=== PATIENT | male | born 1950 | race African-American/Black ===

== ENCOUNTER 2020-11-20 08:00 | Inpatient (IN) ==
[2020-11-20] MEDS ORDERED: DEXTROSE 50% 25 GM/50 ML VIAL IV PRN (08:33)
[2020-11-20] MEDS ORDERED: GLUCAGON 1 MG VIAL IM PRN (08:33)
[2020-11-20] MEDS ORDERED: CHLORHEXIDINE 4% SOLN 118 ML BOTTLE TOP SCH (09:00)
[2020-11-20 10:10] LABS: Basophils % 0.3 % (0.0-0.8); Eosinophils # 0.2 10*3/uL (0.0-0.87); Eosinophils % 3.8 % (0.00-10.9); Hematocrit 43.6 VOL% (42.0-52.0); Hemoglobin 14.4 GM/DL (14.0-18.0); Immature Granulocytes % 0.2 %; Immature Granulocytes Absolute 0.01 #; Lymphocytes # 1.5 10*3/uL (1.4-4.0); Lymphocytes % 25.1 % (21.2-54.2); Mean Corpuscular Volume 84.7 FL (87-102); Mean Platelet Volume 10.1 FL (9.6-12.0); Neutrophils % 55.6 % (38.7-73.9); Platelet Count 256 T/CUMM (130-400); Red Blood Count 5.15 MC/CUMM (3.8-5.5); Red Cell Distribution Width 16.6 % (9.3-17.3); White Blood Count 6.1 T/CUMM (4-12)
[2020-11-20 10:33] LABS: Alanine Aminotransferase 30 U/L (16-61); Albumin 3.7 G/DL (3.4-5.0); Alkaline Phosphatase 105 U/L (45-117); Aspartate Amino Transferase 42 U/L (0-37); Blood Urea Nitrogen 20 MG/DL (7-18); Calcium 9.6 MG/DL (8.5-10.1); Carbon Dioxide 31 MMOL/L (21-32); Estimated Glom Filtration Rate 56 ML/MIN; Glucose 98 MG/DL (74-106); Osmolality,Calculated 283.3 MOS/KG (273-304); Potassium 4.3 MMOL/L (3.5-5.1); Sodium 141 MMOL/L (136-145)
[2020-11-20] MEDS: HEPARIN DRIP 25,000 UNITS/500 ML PREMIX IV SCH (12:56)
[2020-11-20] MEDS: CHLORHEXIDINE 0.12% ORAL RINSE 60 ML BOTTLE SWISH/SPIT SCH (12:57)
[2020-11-21 05:57] LABS: Basophils % 0.6 % (0.0-0.8); Eosinophils # 0.3 10*3/uL (0.0-0.87); Eosinophils % 5.6 % (0.00-10.9); Hematocrit 41.3 VOL% (42.0-52.0); Hemoglobin 13.6 GM/DL (14.0-18.0); Immature Granulocytes % 0.4 %; Immature Granulocytes Absolute 0.02 #; Lymphocytes # 1.5 10*3/uL (1.4-4.0); Lymphocytes % 27.4 % (21.2-54.2); Mean Corpuscular HGB Conc 32.9 GM/DL (32-36); Mean Corpuscular Volume 84.5 FL (87-102); Mean Platelet Volume 10.4 FL (9.6-12.0); Platelet Count 245 T/CUMM (130-400); Red Blood Count 4.89 MC/CUMM (3.8-5.5); Red Cell Distribution Width 16.7 % (9.3-17.3); White Blood Count 5.3 T/CUMM (4-12)
[2020-11-21] MEDS: CHLORHEXIDINE 0.12% ORAL RINSE 60 ML BOTTLE SWISH/SPIT SCH ×3 (10:00→23:18)
[2020-11-21] MEDS: ASPIRIN EC 81 MG TABLET PO SCH (10:00)
[2020-11-21] MEDS: HEPARIN DRIP 25,000 UNITS/500 ML PREMIX IV SCH (12:30)
[2020-11-21] MEDS: ATORVASTATIN 20 MG TABLET PO SCH (23:18)
[2020-11-22 04:44] LABS: Basophils % 0.6 % (0.0-0.8); Eosinophils # 0.4 10*3/uL (0.0-0.87); Eosinophils % 5.8 % (0.00-10.9); Hemoglobin 13.1 GM/DL (14.0-18.0); Immature Granulocytes % 0.3 %; Immature Granulocytes Absolute 0.02 #; Lymphocytes # 1.7 10*3/uL (1.4-4.0); Lymphocytes % 28.1 % (21.2-54.2); Mean Corpuscular HGB Conc 33.6 GM/DL (32-36); Mean Corpuscular Volume 83.7 FL (87-102); Mean Platelet Volume 10.4 FL (9.6-12.0); Monocytes % 15.2 % (1.7-12.7); Platelet Count 248 T/CUMM (130-400); Red Blood Count 4.66 MC/CUMM (3.8-5.5); Red Cell Distribution Width 16.7 % (9.3-17.3); White Blood Count 6.2 T/CUMM (4-12)
[2020-11-22 05:14] LABS: Albumin 3.3 G/DL (3.4-5.0); Bilirubin,Total 0.9 MG/DL (0.20-1.00); Calcium 9.3 MG/DL (8.5-10.1); Osmolality,Calculated 286.1 MOS/KG (273-304); Potassium 4.2 MMOL/L (3.5-5.1); Total Protein 7.2 G/DL (6.4-8.2)
[2020-11-22] MEDS: amLODIPine 10 MG TABLET PO SCH (09:14)
[2020-11-22] MEDS: COLCHICINE 0.6 MG CAPSULE PO SCH (09:14)
[2020-11-22] MEDS: CHLORHEXIDINE 0.12% ORAL RINSE 60 ML BOTTLE SWISH/SPIT SCH ×2 (09:14→20:19)
[2020-11-22] MEDS: FUROSEMIDE 40 MG TABLET PO SCH (09:14)
[2020-11-22] MEDS: FOLIC ACID 1 MG TABLET PO SCH (09:14)
[2020-11-22] MEDS: allopurinoL 100 MG TABLET PO SCH (09:14)
[2020-11-22] MEDS: ASPIRIN EC 81 MG TABLET PO SCH (09:14)
[2020-11-22] MEDS: CHLORHEXIDINE 4% SOLN 118 ML BOTTLE TOP SCH ×3 (10:00→20:19)
[2020-11-22] MEDS: SODIUM CHLORIDE 0.9% 1,000 ML IV SCH (16:40)
[2020-11-22] MEDS: ATORVASTATIN 20 MG TABLET PO SCH (20:18)
[2020-11-23] MEDS: HEPARIN DRIP 25,000 UNITS/500 ML PREMIX IV SCH (00:41)
[2020-11-23] MEDS ORDERED: PAPAVERINE 60 MG/2 ML VIAL ONE (04:18)
[2020-11-23] MEDS ORDERED: VANCOMYCIN 500 MG VIAL ONE (04:19)
[2020-11-23] MEDS ORDERED: VANCOMYCIN 1,000 MG VIAL ONE (04:19)
[2020-11-23] MEDS ORDERED: CEFUROXIME INJ 1,500 MG in SODIUM CHLORIDE 0.9% 100 ML IV ONE (05:00)
[2020-11-23] MEDS ORDERED: DIAZEPAM 5 MG TABLET PO ONE (05:00)
[2020-11-23] MEDS ORDERED: FAMOTIDINE 20 MG TABLET PO ONE (05:00)
[2020-11-23] MEDS ORDERED: GABAPENTIN 400 MG CAPSULE PO ONE (05:00)
[2020-11-23] MEDS ORDERED: VECURONIUM 10 MG VIAL IV ONE ×3 (06:08→10:25)
[2020-11-23] MEDS ORDERED: AMINOCAPROIC ACID 5,000 MG/20 ML VIAL ONE ×4 (06:08)
[2020-11-23] MEDS ORDERED: LIDOCAINE 2% 5 ML VIAL ONE ×3 (06:08→12:07)
[2020-11-23] MEDS ORDERED: MINERAL OIL/PETROLATUM OPH OINT 3.5 GM TUBE ONE ×2 (06:08→12:06)
[2020-11-23] MEDS ORDERED: SUFentanil 250 MCG/5 ML AMP ONE ×2 (06:09)
[2020-11-23] MEDS ORDERED: MIDAZOLAM 10 MG/2 ML VIAL ONE ×3 (06:09→08:14)
[2020-11-23] MEDS ORDERED: SODIUM CHLORIDE 0.9% 0 ML IV ONE (06:09)
[2020-11-23] MEDS ORDERED: SODIUM CHLORIDE 0.9% 100 ML IV ONE ×2 (06:09→12:07)
[2020-11-23 06:33] LABS: Calcium 9.1 MG/DL (8.5-10.1)
[2020-11-23] MEDS ORDERED: SODIUM BICARBONATE 50 MEQ/50 ML VIAL IV ONE ×2 (07:11→10:59)
[2020-11-23] MEDS ORDERED: CALCIUM CHLORIDE 1,000 MG/10 ML SYRINGE IV ONE (07:12)
[2020-11-23] MEDS ORDERED: NITROPRUSSIDE 50 MG/2 ML VIAL ONE (07:12)
[2020-11-23] MEDS ORDERED: PHENYLEPHRINE DRIP 40 MG/250 ML PREMIX IV ONE (07:12)
[2020-11-23] MEDS ORDERED: POTASSIUM CHLORIDE RIDER 20 MEQ/100 ML PREMIX IV ONE (07:12)
[2020-11-23] MEDS ORDERED: ALBUMIN 5% 25.0 GM/500 ML VIAL IV ONE (07:13)
[2020-11-23 07:36] LABS: ABG HCO3 25.3 MMOL/L (20-26); ABG Oxygen Saturation 99.6 % (95-100); ABG PCO2 36.4 MM HG (35-48); ABG PH 7.441 (7.35-7.45); ABG TCO2 21.7 MMOL/L (23-27); Glucose Heart Surgery 100 MG/DL (74-106); Hematocrit Heart Surgery 38.5 PERCENT (42-52); Hemoglobin Heart Surgery 12.5 G/DL (14.0-18.0); Ionized Calcium Arterial 1.16 MMOL/L (1.21-1.46); PCO2 Patient Temp Arterial 36.4 MMHG; PH Patient Temp Arterial 7.441; Patient Temperature 37 CELCIUS; Potassium Heart/CVR 3.6 MMOL/L (3.5-5.1); Sodium Heart/CVR 142 MMOL/L (135-145)
[2020-11-23 07:43] LABS: Bilirubin,Urine Negative (Negative); Blood, Urine Negative (Negative); Glucose,Urine (UA) Negative (Negative); Ketones,Urine Negative (Negative); Mucus,Urine Occasional /LPF (Occasional); Nitrite,Urine Negative (Negative); Protein,Urine Negative; RBC,Urine 1 /HPF (0-4); Urine Appearance CLEAR (Clear); Urine Color Yellow (Yellow); Urine Specific Gravity 1.013 (1.001-1.035); Urine Urobilinogen < 2.0 EU/DL (0.2-1.0)
[2020-11-23] MEDS ORDERED: HEPARIN/NACL 0.9% 2 UNITS/ML 1,000 UNIT/500 ML BAG IV ONE (07:51)
[2020-11-23] MEDS ORDERED: PHENYLEPHRINE DRIP 0 MG/0 ML PREMIX IV ONE (07:51)
[2020-11-23] MEDS ORDERED: NITROGLYCERIN DRIP 50 MG/250 ML BOTTLE IV ONE (08:15)
[2020-11-23 08:43] LABS: Hematocrit Heart Surgery 26.1 PERCENT (42-52); Hemoglobin Heart Surgery 8.4 G/DL (14.0-18.0); PCO2 Patient Temp Venous 33.3 MM HG; PH Patient Temp Venous 7.481; PO2 Patient Temp Venous 44.7 MM HG; Potassium Heart/CVR 4.4 MMOL/L (3.5-5.1); VBG Base Excess 1.7 MEQ/L (0-4); VBG HCO3 25.8 MEQ/L (24-28); VBG Oxygen Saturation 85.3 %; VBG PCO2 36.7 MMHG (41-51); VBG PH 7.451; VBG PO2 51.3 MMHG (17-40); VBG Total CO2 23.7 MMOL/L
[2020-11-23 09:13] LABS: PCO2 Patient Temp Venous 28.3 MM HG; PH Patient Temp Venous 7.537; PO2 Patient Temp Venous 42.2 MM HG; Potassium Heart/CVR 4.4 MMOL/L (3.5-5.1); VBG Oxygen Saturation 87.5 %; VBG PCO2 32.7 MMHG (41-51); VBG PH 7.491; VBG PO2 51.8 MMHG (17-40)
[2020-11-23 09:42] LABS: Hemoglobin Heart Surgery 9.7 G/DL (14.0-18.0); PCO2 Patient Temp Venous 26.4 MM HG; PH Patient Temp Venous 7.561; PO2 Patient Temp Venous 41.9 MM HG; Potassium Heart/CVR 4.3 MMOL/L (3.5-5.1); VBG Base Excess 2.2 MEQ/L (0-4); VBG HCO3 26.2 MEQ/L (24-28); VBG Oxygen Saturation 87.7 %; VBG PCO2 30.5 MMHG (41-51); VBG PH 7.515; VBG PO2 51.4 MMHG (17-40); VBG Total CO2 22.4 MMOL/L
[2020-11-23 10:14] LABS: Hematocrit Heart Surgery 28.7 PERCENT (42-52); Hemoglobin Heart Surgery 9.3 G/DL (14.0-18.0); PCO2 Patient Temp Venous 27.3 MM HG; PH Patient Temp Venous 7.536; PO2 Patient Temp Venous 34.3 MM HG; Potassium Heart/CVR 4.7 MMOL/L (3.5-5.1); VBG Base Excess 1.2 MEQ/L (0-4); VBG HCO3 25.1 MEQ/L (24-28); VBG PCO2 30.1 MMHG (41-51); VBG PH 7.506; VBG PO2 39.4 MMHG (17-40); VBG Total CO2 21.8 MMOL/L
[2020-11-23] MEDS ORDERED: ALBUMIN 25% 25 GM/100 ML VIAL IV ONE (10:58)
[2020-11-23] MEDS ORDERED: DEXTROSE 5% KCL 20 MEQ 20 MEQ/1,000 ML BAG IV ONE (10:58)
[2020-11-23] MEDS ORDERED: methylPREDNISolone SOD SUC 1,000 MG/8 ML VIAL ONE (10:58)
[2020-11-23] MEDS ORDERED: MAGNESIUM SULFATE 5 GM/10 ML VIAL IV ONE (10:58)
[2020-11-23] MEDS ORDERED: PROTAMINE SULFATE 250 MG/25 ML VIAL IV ONE (10:59)
[2020-11-23] MEDS ORDERED: MANNITOL 100 GM/500 ML BAG IV ONE (10:59)
[2020-11-23] MEDS ORDERED: FUROSEMIDE 20 MG/2 ML VIAL ONE (10:59)
[2020-11-23] MEDS ORDERED: PROTAMINE SULFATE 50 MG/5 ML VIAL IV ONE ×3 (10:59→12:48)
[2020-11-23] MEDS ORDERED: HEPARIN 10,000 UNIT/10 ML VIAL ONE (10:59)
[2020-11-23 11:16] LABS: ABG Base Excess -0.7 MMOL/L (-2.5-2.5); ABG HCO3 23.8 MMOL/L (20-26); ABG Oxygen Saturation 99.2 % (95-100); ABG PCO2 34.5 MM HG (35-48); ABG PH 7.434 (7.35-7.45); ABG TCO2 21.3 MMOL/L (23-27); Glucose Heart Surgery 165 MG/DL (74-106); Hematocrit Heart Surgery 27.7 PERCENT (42-52); Hemoglobin Heart Surgery 8.9 G/DL (14.0-18.0); Ionized Calcium Arterial 1.27 MMOL/L (1.21-1.46); PCO2 Patient Temp Arterial 34.5 MMHG; PH Patient Temp Arterial 7.434; Patient Temperature 37 CELCIUS; Potassium Heart/CVR 3.3 MMOL/L (3.5-5.1); Sodium Heart/CVR 135 MMOL/L (135-145)
[2020-11-23] MEDS ORDERED: THROMBIN TOPICAL (RECOMBINANT) 5,000 UNIT VIAL TOP ONE (11:18)
[2020-11-23] MEDS ORDERED: INSULIN REGULAR 100 UNIT/ML IV PRN (11:35)
[2020-11-23] MEDS ORDERED: PHENYLEPHRINE DRIP 40 MG/250 ML PREMIX IV PRN (11:35)
[2020-11-23] MEDS ORDERED: MIDAZOLAM 10 MG/2 ML VIAL IV PRN (11:35)
[2020-11-23] MEDS ORDERED: POTASSIUM CHLORIDE RIDER 20 MEQ/100 ML PREMIX IV PRN (11:35)
[2020-11-23] MEDS ORDERED: CHLORHEXIDINE 4% SOLN 118 ML BOTTLE TOP PRN (11:35)
[2020-11-23] MEDS ORDERED: MORPHINE 10 MG/1 ML VIAL IV PRN (11:35)
[2020-11-23] MEDS ORDERED: ACETAMINOPHEN 650 MG SUPP RECTAL PRN (11:35)
[2020-11-23] MEDS ORDERED: LACTATED RINGERS 250 ML IV PRN (11:35)
[2020-11-23] MEDS ORDERED: POTASSIUM CHLORIDE RIDER 10 MEQ/100 ML PREMIX IV PRN (11:35)
[2020-11-23] MEDS ORDERED: MAGNESIUM SULF RIDER 4 GM/100 ML PREMIX IV PRN (11:35)
[2020-11-23] MEDS ORDERED: ONDANSETRON 4 MG/2 ML VIAL IV PRN (11:35)
[2020-11-23] MEDS ORDERED: MAGNESIUM SULF RIDER 2 GM/50 ML PREMIX IV PRN (11:35)
[2020-11-23] MEDS ORDERED: DEXTROSE 50% 25 GM/50 ML VIAL IV PRN ×2 (11:35)
[2020-11-23] MEDS ORDERED: NITROPRUSSIDE 100 MG in DEXTROSE 5% 250 ML IV PRN (11:35)
[2020-11-23] MEDS ORDERED: VECURONIUM 10 MG VIAL IV PRN ×2 (11:35)
[2020-11-23] MEDS ORDERED: INSULIN REGULAR 100 UNIT/ML IV ONE (11:35)
[2020-11-23] MEDS ORDERED: CALCIUM CHLORIDE 1,000 MG/10 ML SYRINGE IV PRN (11:35)
[2020-11-23] MEDS ORDERED: ETOMIDATE 40 MG/20 ML VIAL IV ONE (12:06)
[2020-11-23] MEDS ORDERED: CALCIUM CHLORIDE 1,000 MG/10 ML VIAL IV ONE (12:07)
[2020-11-23] MEDS ORDERED: LACTATED RINGERS 1,000 ML IV ONE (12:07)
[2020-11-23] MEDS ORDERED: SODIUM CHLORIDE 0.9% 250 ML IV ONE (12:07)
[2020-11-23] MEDS ORDERED: PHENYLEPHRINE DRIP 20 MG/250 ML PREMIX IV ONE (12:12)
[2020-11-23] MEDS: SODIUM CHLORIDE 0.45% 1,000 ML IV SCH ×2 (12:30)
[2020-11-23 13:04] LABS: ABG Base Excess -0.6 MMOL/L (-2.5-2.5); ABG HCO3 23.3 MMOL/L (20-26); ABG PCO2 35.4 MM HG (35-48); ABG PH 7.437 (7.35-7.45); ABG PO2 164.5 MM HG (80-95); ABG TCO2 24.4 MMOL/L (23-27); Glucose Heart Surgery 131 MG/DL (74-106); Hemoglobin Heart Surgery 9.3 G/DL (14.0-18.0); Potassium Heart/CVR 4.1 MMOL/L (3.5-5.1)
[2020-11-23 13:06] LABS: Basophils % 0.2 % (0.0-0.8); Eosinophils # 0.1 10*3/uL (0.0-0.87); Eosinophils % 0.7 % (0.00-10.9); Hematocrit 26.7 VOL% (42.0-52.0); Hemoglobin 8.9 GM/DL (14.0-18.0); Immature Granulocytes % 0.6 %; Immature Granulocytes Absolute 0.06 #; Lymphocytes # 0.8 10*3/uL (1.4-4.0); Lymphocytes % 7.7 % (21.2-54.2); Mean Corpuscular HGB Conc 33.3 GM/DL (32-36); Mean Corpuscular Volume 84.5 FL (87-102); Monocytes % 8.4 % (1.7-12.7); Neutrophils % 82.4 % (38.7-73.9); Platelet Count 182 T/CUMM (130-400); Red Blood Count 3.16 MC/CUMM (3.8-5.5); Red Cell Distribution Width 16.2 % (9.3-17.3); White Blood Count 10.3 T/CUMM (4-12)
[2020-11-23 13:18] LABS: INR 1.3; PT Patient Result 14.1 SECS (10.5-12.0); Partial Thromboplastin Time 28.2 SECS (23.9-33.8)
[2020-11-23] MEDS ORDERED: SEVOFLURANE 1 UNIT/15 MINUTE INH ONE ×5 (13:21)
[2020-11-23] MEDS: ALBUMIN 5% 12.5 GM/250 ML VIAL IV PRN ×3 (13:21→22:10)
[2020-11-23 13:33] LABS: CKMB % 15.1 %
[2020-11-23 13:37] LABS: High Sensitive Troponin I* 17636.3 ng/L (0-78)
[2020-11-23 13:39] LABS: Albumin 3.1 G/DL (3.4-5.0); Bilirubin,Total 1.3 MG/DL (0.20-1.00); Calcium 8.9 MG/DL (8.5-10.1); Osmolality,Calculated 282.4 MOS/KG (273-304); Potassium 4.2 MMOL/L (3.5-5.1); Total Protein 6.1 G/DL (6.4-8.2)
[2020-11-23] MEDS: COLCHICINE 0.6 MG CAPSULE PO SCH (14:25)
[2020-11-23] MEDS: FOLIC ACID 1 MG TABLET PO SCH (14:25)
[2020-11-23] MEDS: ASPIRIN EC 81 MG TABLET PO SCH (14:25)
[2020-11-23] MEDS: FUROSEMIDE 40 MG TABLET PO SCH (14:25)
[2020-11-23] MEDS: amLODIPine 10 MG TABLET PO SCH (14:26)
[2020-11-23] MEDS: SODIUM CHLORIDE 0.9% 1,000 ML IV SCH (14:26)
[2020-11-23] MEDS: allopurinoL 100 MG TABLET PO SCH (14:26)
[2020-11-23] MEDS: CHLORHEXIDINE 0.12% ORAL RINSE 60 ML BOTTLE SWISH/SPIT SCH ×2 (14:26→21:20)
[2020-11-23] MEDS: LACTATED RINGERS 1,000 ML IV PRN ×2 (14:30→22:24)
[2020-11-23 15:02] LABS: ABG Base Excess 0.4 MMOL/L (-2.5-2.5); ABG HCO3 23.8 MMOL/L (20-26); ABG Oxygen Saturation 97.9 % (95-100); ABG PCO2 33.8 MM HG (35-48); ABG PH 7.465 (7.35-7.45); ABG PO2 134.4 MM HG (80-95); ABG TCO2 24.8 MMOL/L (23-27); Glucose Heart Surgery 159 MG/DL (74-106); Hemoglobin Heart Surgery 10.4 G/DL (14.0-18.0); Potassium Heart/CVR 4.5 MMOL/L (3.5-5.1)
[2020-11-23] MEDS: INSULIN REGULAR 100 UNIT/ML SUBCUT PRN ×2 (16:15→17:30)
[2020-11-23 16:57] LABS: ABG Base Excess -0.2 MMOL/L (-2.5-2.5); ABG HCO3 24.3 MMOL/L (20-26); ABG Oxygen Saturation 98.7 % (95-100); ABG PCO2 42.6 MM HG (35-48); ABG PH 7.377 (7.35-7.45); Glucose Heart Surgery 155 MG/DL (74-106); Hematocrit Heart Surgery 29.6 PERCENT (42-52); Hemoglobin Heart Surgery 9.5 G/DL (14.0-18.0); Potassium Heart/CVR 4.4 MMOL/L (3.5-5.1)
[2020-11-23] MEDS: INSULIN REGULAR DRIP 100 ML IV SCH (19:08)
[2020-11-23] MEDS: CEFUROXIME INJ 1,500 MG in SODIUM CHLORIDE 0.9% 100 ML IV SCH (19:08)
[2020-11-23] MEDS: MIDAZOLAM 2 MG/2 ML VIAL IV PRN (19:15)
[2020-11-23] MEDS ORDERED: AMIODARONE INJ 150 MG in DEXTROSE 5% 100 ML IV ONE (19:23)
[2020-11-23] MEDS ORDERED: AMIODARONE INJ 450 MG in DEXTROSE 5% 241 ML IV SCH (19:30)
[2020-11-23 20:21] LABS: ABG Base Excess -0.5 MMOL/L (-2.5-2.5); ABG Oxygen Saturation 98.8 % (95-100); ABG PH 7.391 (7.35-7.45); ABG TCO2 21.8 MMOL/L (23-27); Glucose Heart Surgery 164 MG/DL (74-106); Hematocrit Heart Surgery 34.2 PERCENT (42-52); Hemoglobin Heart Surgery 11.1 G/DL (14.0-18.0); Potassium Heart/CVR 4.4 MMOL/L (3.5-5.1)
[2020-11-23 21:00] LABS: CKMB % 10.6 %
[2020-11-23 21:02] LABS: High Sensitive Troponin I* 31206.5 ng/L (0-78)
[2020-11-23] MEDS: DEXMEDETOMIDINE 200 MCG in SODIUM CHLORIDE 0.9% 48 ML IV PRN (21:26)
[2020-11-23 23:51] LABS: ABG Base Excess 0.1 MMOL/L (-2.5-2.5); ABG HCO3 24.5 MMOL/L (20-26); ABG Oxygen Saturation 98.7 % (95-100); ABG PCO2 38.2 MM HG (35-48); ABG PH 7.414 (7.35-7.45); ABG TCO2 22.1 MMOL/L (23-27); Glucose Heart Surgery 141 MG/DL (74-106); Hematocrit Heart Surgery 32.2 PERCENT (42-52); Hemoglobin Heart Surgery 10.4 G/DL (14.0-18.0); Potassium Heart/CVR 4.4 MMOL/L (3.5-5.1)
[2020-11-23] MEDS: INSULIN REGULAR 100 UNIT/ML SUBCUT SCH (23:59)
[2020-11-24] MEDS ORDERED: FUROSEMIDE 40 MG/4 ML VIAL IV ONE (01:04)
[2020-11-24] MEDS ORDERED: AMIODARONE INJ 450 MG in DEXTROSE 5% 241 ML IV SCH (01:30)
[2020-11-24] MEDS: MIDAZOLAM 2 MG/2 ML VIAL IV PRN (03:45)
[2020-11-24 03:51] LABS: ABG HCO3 25.3 MMOL/L (20-26); ABG Oxygen Saturation 98.6 % (95-100); ABG PCO2 36.8 MM HG (35-48); ABG PH 7.439 (7.35-7.45); ABG TCO2 22.3 MMOL/L (23-27); Glucose Heart Surgery 150 MG/DL (74-106); Hematocrit Heart Surgery 33.8 PERCENT (42-52); Potassium Heart/CVR 4.1 MMOL/L (3.5-5.1)
[2020-11-24 03:57] LABS: Basophils % 0.1 % (0.0-0.8); Hematocrit 32.3 VOL% (42.0-52.0); Immature Granulocytes % 0.5 %; Immature Granulocytes Absolute 0.06 #; Lymphocytes # 0.8 10*3/uL (1.4-4.0); Lymphocytes % 5.9 % (21.2-54.2); Mean Corpuscular HGB Conc 33.4 GM/DL (32-36); Mean Corpuscular Volume 85.9 FL (87-102); Mean Platelet Volume 10.4 FL (9.6-12.0); Monocytes % 7.3 % (1.7-12.7); Neutrophils % 86.2 % (38.7-73.9); Platelet Count 160 T/CUMM (130-400); Red Blood Count 3.76 MC/CUMM (3.8-5.5); Red Cell Distribution Width 15.9 % (9.3-17.3); White Blood Count 13.3 T/CUMM (4-12)
[2020-11-24] MEDS: INSULIN REGULAR 100 UNIT/ML SUBCUT SCH ×5 (03:59→21:20)
[2020-11-24 04:09] LABS: Hemoglobin 10.8 GM/DL (14.0-18.0)
[2020-11-24 04:26] LABS: Albumin 3.7 G/DL (3.4-5.0); Bilirubin,Direct 0.29 MG/DL (0.0-0.20); Bilirubin,Total 1.1 MG/DL (0.20-1.00); CKMB % 7.6 %; Calcium 8.9 MG/DL (8.5-10.1); Osmolality,Calculated 288.1 MOS/KG (273-304); Potassium 4.1 MMOL/L (3.5-5.1); Total Protein 6.7 G/DL (6.4-8.2)
[2020-11-24] MEDS: DEXMEDETOMIDINE 200 MCG in SODIUM CHLORIDE 0.9% 48 ML IV PRN (04:32)
[2020-11-24 08:26] LABS: ABG Base Excess -1.4 MMOL/L (-2.5-2.5); ABG HCO3 23.3 MMOL/L (20-26); ABG Oxygen Saturation 95.7 % (95-100); ABG PCO2 39.1 MM HG (35-48); ABG PH 7.393 (7.35-7.45); ABG PO2 89.8 MM HG (80-95); ABG TCO2 24.5 MMOL/L (23-27); Glucose Heart Surgery 143 MG/DL (74-106); Hemoglobin Heart Surgery 11.7 G/DL (14.0-18.0); Potassium Heart/CVR 4.2 MMOL/L (3.5-5.1)
[2020-11-24] MEDS: CEFUROXIME INJ 1,500 MG in SODIUM CHLORIDE 0.9% 100 ML IV SCH ×2 (09:11→21:19)
[2020-11-24] MEDS: CHLORHEXIDINE 0.12% ORAL RINSE 60 ML BOTTLE SWISH/SPIT SCH ×2 (09:13→21:19)
[2020-11-24] MEDS ORDERED: amLODIPine 5 MG TABLET PO ONE (10:58)
[2020-11-24] MEDS ORDERED: AMIODARONE 200 MG TABLET PO ONE (11:37)
[2020-11-24] MEDS: ASPIRIN EC 325 MG TABLET PO SCH (11:46)
[2020-11-24] MEDS: SODIUM CHLORIDE 0.45% 1,000 ML IV SCH ×2 (13:24)
[2020-11-24] MEDS: INSULIN REGULAR DRIP 100 ML IV SCH (13:25)
[2020-11-24] MEDS ORDERED: MAGNESIUM SULF RIDER 4 GM/100 ML PREMIX IV PRN (13:30)
[2020-11-24] MEDS ORDERED: SODIUM CHLOR 0.45% KCL 20 MEQ 20 MEQ/1,000 ML BAG IV SCH (13:30)
[2020-11-24] MEDS ORDERED: ZALEPLON 5 MG CAPSULE PO PRN (13:30)
[2020-11-24] MEDS ORDERED: MAGNESIUM SULF RIDER 2 GM/50 ML PREMIX IV PRN (13:30)
[2020-11-24] MEDS ORDERED: oxyCODONE/ACETAMINOPHEN 5-325 MG TABLET PO PRN (13:30)
[2020-11-24] MEDS ORDERED: MAGNESIUM HYDROXIDE SUSP 30 ML UDCUP PO PRN (13:30)
[2020-11-24] MEDS ORDERED: DEXTROSE 50% 25 GM/50 ML VIAL IV PRN (13:30)
[2020-11-24] MEDS ORDERED: ALUMINUM/MAGNES/SIMETH MAX STR 30 ML UDCUP PO PRN (13:30)
[2020-11-24] MEDS ORDERED: GLUCAGON 1 MG VIAL IM PRN (13:30)
[2020-11-24 14:52] LABS: CKMB % 4.8 %; High Sensitive Troponin I* 27539.4 ng/L (0-78)
[2020-11-24] MEDS: AMIODARONE 200 MG TABLET PO SCH (21:19)
[2020-11-25] MEDS: INSULIN REGULAR 100 UNIT/ML SUBCUT SCH ×6 (00:13→21:35)
[2020-11-25 05:49] LABS: Basophils % 0.1 % (0.0-0.8); Hematocrit 34.7 VOL% (42.0-52.0); Hemoglobin 11.4 GM/DL (14.0-18.0); Immature Granulocytes % 0.8 %; Immature Granulocytes Absolute 0.15 #; Lymphocytes % 5.2 % (21.2-54.2); Mean Corpuscular HGB Conc 32.9 GM/DL (32-36); Mean Platelet Volume 11.1 FL (9.6-12.0); Monocytes % 8.5 % (1.7-12.7); Neutrophils % 85.4 % (38.7-73.9); Platelet Count 181 T/CUMM (130-400); Red Blood Count 3.99 MC/CUMM (3.8-5.5); Red Cell Distribution Width 16.3 % (9.3-17.3); White Blood Count 19.7 T/CUMM (4-12)
[2020-11-25] MEDS ORDERED: FUROSEMIDE 40 MG/4 ML VIAL IV ONE (06:00)
[2020-11-25 06:13] LABS: Albumin 3.7 G/DL (3.4-5.0); Bilirubin,Direct 0.31 MG/DL (0.0-0.20); Bilirubin,Total 1.3 MG/DL (0.20-1.00); Calcium 8.9 MG/DL (8.5-10.1); Osmolality,Calculated 289.3 MOS/KG (273-304); Potassium 4.1 MMOL/L (3.5-5.1); Total Protein 7.3 G/DL (6.4-8.2)
[2020-11-25 06:26] LABS: Albumin 3.7 G/DL (3.4-5.0); Bilirubin,Direct 0.31 MG/DL (0.0-0.20); Bilirubin,Indirect 1.1 MG/DL (0.0-1.0); Bilirubin,Total 1.4 MG/DL (0.20-1.00); CKMB % 1.8 %; Total Protein 7.3 G/DL (6.4-8.2)
[2020-11-25 06:27] LABS: High Sensitive Troponin I* 18407.6 ng/L (0-78)
[2020-11-25] MEDS: ASPIRIN EC 325 MG TABLET PO SCH (10:20)
[2020-11-25] MEDS: FERROUS SULFATE 325 MG TABLET PO SCH (10:20)
[2020-11-25] MEDS: PANTOPRAZOLE 40 MG TABLET PO SCH (10:20)
[2020-11-25] MEDS: amLODIPine 5 MG TABLET PO SCH (10:20)
[2020-11-25] MEDS: AMIODARONE 200 MG TABLET PO SCH ×2 (10:20→21:34)
[2020-11-25] MEDS: FOLIC ACID 1 MG TABLET PO SCH (10:20)
[2020-11-25] MEDS: COLCHICINE 0.6 MG CAPSULE PO SCH (10:21)
[2020-11-25] MEDS: allopurinoL 100 MG TABLET PO SCH (10:21)
[2020-11-25] MEDS: DOCUSATE SODIUM 100 MG CAPSULE PO SCH (10:21)
[2020-11-25] MEDS: FUROSEMIDE 40 MG/4 ML VIAL IV SCH ×2 (10:27→16:22)
[2020-11-25] MEDS: CHLORHEXIDINE 0.12% ORAL RINSE 60 ML BOTTLE SWISH/SPIT SCH ×2 (10:28→21:34)
[2020-11-25] MEDS: METOPROLOL TARTRATE 25 MG TABLET PO SCH (10:33)
[2020-11-25] MEDS: ESCITALOPRAM 10 MG TABLET PO SCH (10:33)
[2020-11-25] MEDS: ONDANSETRON 4 MG/2 ML VIAL IV PRN (23:53)
[2020-11-26] MEDS: INSULIN REGULAR 100 UNIT/ML SUBCUT SCH ×7 (00:26→23:45)
[2020-11-26 06:31] LABS: Basophils % 0.2 % (0.0-0.8); Hematocrit 32.5 VOL% (42.0-52.0); Hemoglobin 10.9 GM/DL (14.0-18.0); Immature Granulocytes % 0.6 %; Immature Granulocytes Absolute 0.11 #; Lymphocytes # 1.2 10*3/uL (1.4-4.0); Lymphocytes % 6.6 % (21.2-54.2); Mean Corpuscular HGB Conc 33.5 GM/DL (32-36); Mean Corpuscular Volume 86.2 FL (87-102); Mean Platelet Volume 11.6 FL (9.6-12.0); Monocytes % 9.6 % (1.7-12.7); Platelet Count 146 T/CUMM (130-400); Red Blood Count 3.77 MC/CUMM (3.8-5.5); Red Cell Distribution Width 16.2 % (9.3-17.3); White Blood Count 17.6 T/CUMM (4-12)
[2020-11-26 07:05] LABS: Albumin 3.4 G/DL (3.4-5.0); Bilirubin,Direct 0.36 MG/DL (0.0-0.20); Bilirubin,Total 1.6 MG/DL (0.20-1.00); Calcium 8.8 MG/DL (8.5-10.1); Osmolality,Calculated 288.5 MOS/KG (273-304); Potassium 3.6 MMOL/L (3.5-5.1); Total Protein 7.2 G/DL (6.4-8.2)
[2020-11-26 07:07] LABS: Alanine Aminotransferase 57 U/L (16-61); Albumin 3.5 G/DL (3.4-5.0); Alkaline Phosphatase 72 U/L (45-117); Aspartate Amino Transferase 109 U/L (0-37); Bilirubin,Indirect 1.1 MG/DL (0.0-1.0); Total Protein 7.2 G/DL (6.4-8.2)
[2020-11-26] MEDS: DOCUSATE SODIUM 100 MG CAPSULE PO SCH (10:16)
[2020-11-26] MEDS: ESCITALOPRAM 10 MG TABLET PO SCH (10:16)
[2020-11-26] MEDS: FOLIC ACID 1 MG TABLET PO SCH (10:17)
[2020-11-26] MEDS: AMIODARONE 200 MG TABLET PO SCH ×2 (10:17→20:24)
[2020-11-26] MEDS: PANTOPRAZOLE 40 MG TABLET PO SCH (10:17)
[2020-11-26] MEDS: FERROUS SULFATE 325 MG TABLET PO SCH (10:17)
[2020-11-26] MEDS: allopurinoL 100 MG TABLET PO SCH (10:17)
[2020-11-26] MEDS: COLCHICINE 0.6 MG CAPSULE PO SCH (10:17)
[2020-11-26] MEDS: amLODIPine 5 MG TABLET PO SCH (10:17)
[2020-11-26] MEDS: ASPIRIN EC 325 MG TABLET PO SCH (10:17)
[2020-11-26] MEDS: METOPROLOL TARTRATE 25 MG TABLET PO SCH (10:17)
[2020-11-26] MEDS: CHLORHEXIDINE 0.12% ORAL RINSE 60 ML BOTTLE SWISH/SPIT SCH ×2 (10:19→20:24)
[2020-11-26] MEDS: FUROSEMIDE 40 MG/4 ML VIAL IV SCH (10:25)
[2020-11-26] MEDS: ONDANSETRON 4 MG/2 ML VIAL IV PRN ×2 (12:01→20:24)
[2020-11-26] MEDS: ALBUTEROL/IPRATROPIUM 3 ML NEB RESP TX SCH ×2 (15:09→18:54)
[2020-11-27] MEDS: ALBUTEROL/IPRATROPIUM 3 ML NEB RESP TX SCH ×4 (00:56→20:03)
[2020-11-27] MEDS: ONDANSETRON 4 MG/2 ML VIAL IV PRN (05:23)
[2020-11-27 05:46] LABS: Basophils % 0.1 % (0.0-0.8); Eosinophils % 0.1 % (0.00-10.9); Hematocrit 31.8 VOL% (42.0-52.0); Hemoglobin 10.6 GM/DL (14.0-18.0); Immature Granulocytes % 0.9 %; Immature Granulocytes Absolute 0.13 #; Lymphocytes # 1.6 10*3/uL (1.4-4.0); Lymphocytes % 10.8 % (21.2-54.2); Mean Corpuscular HGB Conc 33.3 GM/DL (32-36); Mean Corpuscular Volume 85.5 FL (87-102); Mean Platelet Volume 11.6 FL (9.6-12.0); Monocytes % 8.5 % (1.7-12.7); Neutrophils % 79.6 % (38.7-73.9); Platelet Count 166 T/CUMM (130-400); Red Blood Count 3.72 MC/CUMM (3.8-5.5); Red Cell Distribution Width 15.9 % (9.3-17.3); White Blood Count 15.3 T/CUMM (4-12)
[2020-11-27] MEDS: INSULIN REGULAR 100 UNIT/ML SUBCUT SCH ×6 (05:56→23:52)
[2020-11-27 06:16] LABS: Calcium 8.8 MG/DL (8.5-10.1); Osmolality,Calculated 281.1 MOS/KG (273-304); Potassium 3.4 MMOL/L (3.5-5.1)
[2020-11-27] MEDS ORDERED: FUROSEMIDE 40 MG TABLET PO SCH (09:00)
[2020-11-27] MEDS ORDERED: METHOTREXATE 2.5 MG TABLET PO SCH (09:00)
[2020-11-27] MEDS: AMIODARONE 200 MG TABLET PO SCH ×2 (09:36→20:52)
[2020-11-27] MEDS: COLCHICINE 0.6 MG CAPSULE PO SCH (09:36)
[2020-11-27] MEDS: ASCORBIC ACID 500 MG TABLET PO SCH ×2 (09:36→20:52)
[2020-11-27] MEDS: ASPIRIN EC 325 MG TABLET PO SCH (09:36)
[2020-11-27] MEDS: PANTOPRAZOLE 40 MG TABLET PO SCH (09:36)
[2020-11-27] MEDS: DOCUSATE SODIUM 100 MG CAPSULE PO SCH (09:36)
[2020-11-27] MEDS: FOLIC ACID 1 MG TABLET PO SCH (09:37)
[2020-11-27] MEDS: FERROUS SULFATE 325 MG TABLET PO SCH (09:37)
[2020-11-27] MEDS: ESCITALOPRAM 10 MG TABLET PO SCH (09:37)
[2020-11-27] MEDS: METOPROLOL TARTRATE 25 MG TABLET PO SCH (09:37)
[2020-11-27] MEDS: amLODIPine 10 MG TABLET PO SCH (09:38)
[2020-11-27] MEDS: CHLORHEXIDINE 0.12% ORAL RINSE 60 ML BOTTLE SWISH/SPIT SCH ×2 (09:38→20:52)
[2020-11-27] MEDS: FUROSEMIDE 40 MG/4 ML VIAL IV SCH (09:38)
[2020-11-27] MEDS: allopurinoL 100 MG TABLET PO SCH (09:38)
[2020-11-27] MEDS: amLODIPine 5 MG TABLET PO SCH (10:01)
[2020-11-28] MEDS: ALBUTEROL/IPRATROPIUM 3 ML NEB RESP TX SCH ×4 (00:18→19:56)
[2020-11-28 04:29] LABS: Basophils % 0.2 % (0.0-0.8); Eosinophils # 0.1 10*3/uL (0.0-0.87); Eosinophils % 0.5 % (0.00-10.9); Hematocrit 33.7 VOL% (42.0-52.0); Hemoglobin 11.2 GM/DL (14.0-18.0); Immature Granulocytes % 0.5 %; Immature Granulocytes Absolute 0.06 #; Lymphocytes # 1.6 10*3/uL (1.4-4.0); Lymphocytes % 12.4 % (21.2-54.2); Mean Corpuscular HGB Conc 33.2 GM/DL (32-36); Mean Corpuscular Volume 85.3 FL (87-102); Mean Platelet Volume 11.3 FL (9.6-12.0); Monocytes % 8.8 % (1.7-12.7); Neutrophils % 77.6 % (38.7-73.9); Platelet Count 212 T/CUMM (130-400); Red Blood Count 3.95 MC/CUMM (3.8-5.5); Red Cell Distribution Width 15.7 % (9.3-17.3)
[2020-11-28 04:54] LABS: Alanine Aminotransferase 189 U/L (16-61); Albumin 3.4 G/DL (3.4-5.0); Alkaline Phosphatase 113 U/L (45-117); Aspartate Amino Transferase 169 U/L (0-37); Bilirubin,Indirect 1.5 MG/DL (0.0-1.0); Blood Urea Nitrogen 48 MG/DL (7-18); Carbon Dioxide 31 MMOL/L (21-32); Estimated Glom Filtration Rate 38 ML/MIN; Glucose 122 MG/DL (74-106); Osmolality,Calculated 283.1 MOS/KG (273-304); Potassium 3.3 MMOL/L (3.5-5.1); Sodium 135 MMOL/L (136-145); Total Protein 7.6 G/DL (6.4-8.2)
[2020-11-28] MEDS: INSULIN REGULAR 100 UNIT/ML SUBCUT SCH ×5 (05:19→22:11)
[2020-11-28] MEDS: ACETAMINOPHEN 325 MG TABLET PO PRN (05:49)
[2020-11-28] MEDS: AMIODARONE 200 MG TABLET PO SCH ×2 (09:49→22:09)
[2020-11-28] MEDS: ASPIRIN EC 81 MG TABLET PO SCH (09:49)
[2020-11-28] MEDS: COLCHICINE 0.6 MG CAPSULE PO SCH (09:49)
[2020-11-28] MEDS: FOLIC ACID 1 MG TABLET PO SCH (09:49)
[2020-11-28] MEDS: METOPROLOL TARTRATE 25 MG TABLET PO SCH (09:49)
[2020-11-28] MEDS: DOCUSATE SODIUM 100 MG CAPSULE PO SCH (09:49)
[2020-11-28] MEDS: allopurinoL 100 MG TABLET PO SCH (09:49)
[2020-11-28] MEDS: PANTOPRAZOLE 40 MG TABLET PO SCH (09:49)
[2020-11-28] MEDS: amLODIPine 10 MG TABLET PO SCH (09:49)
[2020-11-28] MEDS: ESCITALOPRAM 10 MG TABLET PO SCH (09:49)
[2020-11-28] MEDS: ASCORBIC ACID 500 MG TABLET PO SCH ×2 (09:49→22:09)
[2020-11-28] MEDS: CLOPIDOGREL 75 MG TABLET PO SCH (09:49)
[2020-11-28] MEDS: CHLORHEXIDINE 0.12% ORAL RINSE 60 ML BOTTLE SWISH/SPIT SCH ×2 (09:50→22:09)
[2020-11-28] MEDS: FERROUS SULFATE 325 MG TABLET PO SCH (09:50)
[2020-11-28] MEDS: FUROSEMIDE 40 MG/4 ML VIAL IV SCH (09:50)
[2020-11-29] MEDS: INSULIN REGULAR 100 UNIT/ML SUBCUT SCH ×6 (01:06→19:55)
[2020-11-29] MEDS: ALBUTEROL/IPRATROPIUM 3 ML NEB RESP TX SCH ×4 (01:14→21:32)
[2020-11-29] MEDS: ACETAMINOPHEN 325 MG TABLET PO PRN (04:36)
[2020-11-29 05:17] LABS: Basophils % 0.2 % (0.0-0.8); Eosinophils # 0.1 10*3/uL (0.0-0.87); Eosinophils % 0.9 % (0.00-10.9); Hematocrit 32.3 VOL% (42.0-52.0); Hemoglobin 10.8 GM/DL (14.0-18.0); Immature Granulocytes % 0.5 %; Immature Granulocytes Absolute 0.05 #; Lymphocytes # 1.5 10*3/uL (1.4-4.0); Lymphocytes % 15.1 % (21.2-54.2); Mean Corpuscular HGB Conc 33.4 GM/DL (32-36); Mean Corpuscular Volume 83.9 FL (87-102); Mean Platelet Volume 11.3 FL (9.6-12.0); Monocytes % 4.4 % (1.7-12.7); Neutrophils % 78.9 % (38.7-73.9); Platelet Count 250 T/CUMM (130-400); Red Blood Count 3.85 MC/CUMM (3.8-5.5); Red Cell Distribution Width 15.6 % (9.3-17.3); White Blood Count 9.9 T/CUMM (4-12)
[2020-11-29 05:43] LABS: Alanine Aminotransferase 178 U/L (16-61); Albumin 3.2 G/DL (3.4-5.0); Alkaline Phosphatase 106 U/L (45-117); Aspartate Amino Transferase 129 U/L (0-37); Blood Urea Nitrogen 46 MG/DL (7-18); Calcium 8.7 MG/DL (8.5-10.1); Carbon Dioxide 31 MMOL/L (21-32); Estimated Glom Filtration Rate 40 ML/MIN; Glucose 112 MG/DL (74-106); Osmolality,Calculated 285.8 MOS/KG (273-304); Potassium 3.2 MMOL/L (3.5-5.1); Sodium 137 MMOL/L (136-145); Total Protein 7.2 G/DL (6.4-8.2)
[2020-11-29] MEDS: DOCUSATE SODIUM 100 MG CAPSULE PO SCH (09:47)
[2020-11-29] MEDS: FOLIC ACID 1 MG TABLET PO SCH (09:47)
[2020-11-29] MEDS: FUROSEMIDE 40 MG TABLET PO SCH (09:48)
[2020-11-29] MEDS: PANTOPRAZOLE 40 MG TABLET PO SCH (09:48)
[2020-11-29] MEDS: ESCITALOPRAM 10 MG TABLET PO SCH (09:48)
[2020-11-29] MEDS: CLOPIDOGREL 75 MG TABLET PO SCH (09:48)
[2020-11-29] MEDS: ASPIRIN EC 81 MG TABLET PO SCH (09:48)
[2020-11-29] MEDS: allopurinoL 100 MG TABLET PO SCH (09:48)
[2020-11-29] MEDS: FERROUS SULFATE 325 MG TABLET PO SCH (09:48)
[2020-11-29] MEDS: ASCORBIC ACID 500 MG TABLET PO SCH ×2 (09:48→21:26)
[2020-11-29] MEDS: AMIODARONE 200 MG TABLET PO SCH ×2 (09:48→21:26)
[2020-11-29] MEDS: CHLORHEXIDINE 0.12% ORAL RINSE 60 ML BOTTLE SWISH/SPIT SCH ×2 (09:49→21:27)
[2020-11-29] MEDS: COLCHICINE 0.6 MG CAPSULE PO SCH (09:49)
[2020-11-29] MEDS: amLODIPine 10 MG TABLET PO SCH (09:49)
[2020-11-29] MEDS: METOPROLOL TARTRATE 25 MG TABLET PO SCH (09:49)
[2020-11-29] MEDS: POTASSIUM CHLORIDE 20 MEQ TABLET PO PRN ×3 (12:30→21:26)
[2020-11-30] MEDS: ALBUTEROL/IPRATROPIUM 3 ML NEB RESP TX SCH ×4 (00:36→18:53)
[2020-11-30 06:40] LABS: Basophils % 0.3 % (0.0-0.8); Eosinophils # 0.2 10*3/uL (0.0-0.87); Eosinophils % 1.6 % (0.00-10.9); Hematocrit 30.3 VOL% (42.0-52.0); Hemoglobin 10.2 GM/DL (14.0-18.0); Immature Granulocytes % 0.6 %; Immature Granulocytes Absolute 0.06 #; Lymphocytes # 1.4 10*3/uL (1.4-4.0); Lymphocytes % 13.7 % (21.2-54.2); Mean Corpuscular HGB Conc 33.7 GM/DL (32-36); Mean Corpuscular Volume 85.1 FL (87-102); Mean Platelet Volume 10.6 FL (9.6-12.0); Neutrophils % 78.8 % (38.7-73.9); Platelet Count 243 T/CUMM (130-400); Red Blood Count 3.56 MC/CUMM (3.8-5.5); Red Cell Distribution Width 15.9 % (9.3-17.3); White Blood Count 10.3 T/CUMM (4-12)
[2020-11-30 07:12] LABS: Albumin 3.1 G/DL (3.4-5.0); Bilirubin,Total 1.8 MG/DL (0.20-1.00); Calcium 8.8 MG/DL (8.5-10.1); Potassium 3.9 MMOL/L (3.5-5.1); Total Protein 7.1 G/DL (6.4-8.2)
[2020-11-30] MEDS: CLOPIDOGREL 75 MG TABLET PO SCH (09:48)
[2020-11-30] MEDS: amLODIPine 10 MG TABLET PO SCH (09:48)
[2020-11-30] MEDS: FERROUS SULFATE 325 MG TABLET PO SCH (09:48)
[2020-11-30] MEDS: FOLIC ACID 1 MG TABLET PO SCH (09:48)
[2020-11-30] MEDS: METOPROLOL TARTRATE 25 MG TABLET PO SCH (09:48)
[2020-11-30] MEDS: ASPIRIN EC 81 MG TABLET PO SCH (09:49)
[2020-11-30] MEDS: AMIODARONE 200 MG TABLET PO SCH ×2 (09:49→21:55)
[2020-11-30] MEDS: COLCHICINE 0.6 MG CAPSULE PO SCH (09:49)
[2020-11-30] MEDS: DOCUSATE SODIUM 100 MG CAPSULE PO SCH (09:49)
[2020-11-30] MEDS: ESCITALOPRAM 10 MG TABLET PO SCH (09:49)
[2020-11-30] MEDS: allopurinoL 100 MG TABLET PO SCH (09:49)
[2020-11-30] MEDS: ASCORBIC ACID 500 MG TABLET PO SCH ×2 (09:49→21:55)
[2020-11-30] MEDS: INSULIN REGULAR 100 UNIT/ML SUBCUT SCH ×4 (09:50→23:02)
[2020-11-30] MEDS: CHLORHEXIDINE 0.12% ORAL RINSE 60 ML BOTTLE SWISH/SPIT SCH ×2 (09:50→23:02)
[2020-11-30] MEDS: PANTOPRAZOLE 40 MG TABLET PO SCH (09:50)
[2020-11-30] MEDS: FUROSEMIDE 40 MG TABLET PO SCH (09:50)
[2020-11-30] MEDS: POTASSIUM CHLORIDE 20 MEQ TABLET PO PRN ×2 (11:34→13:53)
[2020-12-01] MEDS: ALBUTEROL/IPRATROPIUM 3 ML NEB RESP TX SCH ×4 (00:55→19:47)
[2020-12-01] MEDS: INSULIN REGULAR 100 UNIT/ML SUBCUT SCH ×4 (08:48→22:58)
[2020-12-01] MEDS: DOCUSATE SODIUM 100 MG CAPSULE PO SCH (08:49)
[2020-12-01] MEDS: COLCHICINE 0.6 MG CAPSULE PO SCH (08:49)
[2020-12-01] MEDS: ESCITALOPRAM 10 MG TABLET PO SCH (08:49)
[2020-12-01] MEDS: CLOPIDOGREL 75 MG TABLET PO SCH (08:49)
[2020-12-01] MEDS: FOLIC ACID 1 MG TABLET PO SCH (08:49)
[2020-12-01] MEDS: METOPROLOL TARTRATE 25 MG TABLET PO SCH (08:50)
[2020-12-01] MEDS: ASPIRIN EC 81 MG TABLET PO SCH (08:50)
[2020-12-01] MEDS: PANTOPRAZOLE 40 MG TABLET PO SCH (08:50)
[2020-12-01] MEDS: FUROSEMIDE 40 MG TABLET PO SCH (08:51)
[2020-12-01] MEDS: FERROUS SULFATE 325 MG TABLET PO SCH (08:51)
[2020-12-01] MEDS: allopurinoL 100 MG TABLET PO SCH (08:51)
[2020-12-01] MEDS: ASCORBIC ACID 500 MG TABLET PO SCH ×2 (08:51→21:58)
[2020-12-01] MEDS: amLODIPine 10 MG TABLET PO SCH (08:51)
[2020-12-01] MEDS: CHLORHEXIDINE 0.12% ORAL RINSE 60 ML BOTTLE SWISH/SPIT SCH ×2 (08:52→22:59)
[2020-12-01] MEDS: AMIODARONE 200 MG TABLET PO SCH ×2 (08:52→21:55)
[2020-12-01] MEDS ORDERED: FUROSEMIDE 40 MG/4 ML VIAL IV ONE (14:37)
[2020-12-01 15:24] LABS: Basophils # 0.1 10*3/uL (0.0-0.2); Basophils % 0.3 % (0.0-0.8); Eosinophils # 0.1 10*3/uL (0.0-0.87); Hematocrit 33.2 VOL% (42.0-52.0); Immature Granulocytes Absolute 0.15 #; Lymphocytes # 1.7 10*3/uL (1.4-4.0); Lymphocytes % 11.8 % (21.2-54.2); Mean Corpuscular HGB Conc 33.1 GM/DL (32-36); Mean Corpuscular Volume 85.3 FL (87-102); Mean Platelet Volume 10.3 FL (9.6-12.0); Neutrophils % 78.9 % (38.7-73.9); Platelet Count 382 T/CUMM (130-400); Red Blood Count 3.89 MC/CUMM (3.8-5.5); White Blood Count 14.5 T/CUMM (4-12)
[2020-12-01 15:48] LABS: Osmolality,Calculated 272.4 MOS/KG (273-304); Potassium 4.3 MMOL/L (3.5-5.1)
[2020-12-02] MEDS: ALBUTEROL/IPRATROPIUM 3 ML NEB RESP TX SCH ×4 (01:00→19:10)
[2020-12-02] MEDS: FOLIC ACID 1 MG TABLET PO SCH (09:45)
[2020-12-02] MEDS: INSULIN REGULAR 100 UNIT/ML SUBCUT SCH ×4 (09:45→21:16)
[2020-12-02] MEDS: COLCHICINE 0.6 MG CAPSULE PO SCH (09:45)
[2020-12-02] MEDS: FERROUS SULFATE 325 MG TABLET PO SCH (09:45)
[2020-12-02] MEDS: ASCORBIC ACID 500 MG TABLET PO SCH ×2 (09:46→21:15)
[2020-12-02] MEDS: ESCITALOPRAM 10 MG TABLET PO SCH (09:46)
[2020-12-02] MEDS: allopurinoL 100 MG TABLET PO SCH (09:46)
[2020-12-02] MEDS: FUROSEMIDE 40 MG TABLET PO SCH (09:46)
[2020-12-02] MEDS: CLOPIDOGREL 75 MG TABLET PO SCH (09:46)
[2020-12-02] MEDS: PANTOPRAZOLE 40 MG TABLET PO SCH (09:46)
[2020-12-02] MEDS: ASPIRIN EC 81 MG TABLET PO SCH (09:46)
[2020-12-02] MEDS: amLODIPine 10 MG TABLET PO SCH (09:46)
[2020-12-02] MEDS: DOCUSATE SODIUM 100 MG CAPSULE PO SCH (09:46)
[2020-12-02] MEDS: AMIODARONE 200 MG TABLET PO SCH ×2 (09:47→21:15)
[2020-12-02] MEDS: CHLORHEXIDINE 0.12% ORAL RINSE 60 ML BOTTLE SWISH/SPIT SCH ×2 (09:47→21:15)
[2020-12-02] MEDS: METOPROLOL TARTRATE 25 MG TABLET PO SCH (09:47)
[2020-12-03] MEDS: ALBUTEROL/IPRATROPIUM 3 ML NEB RESP TX SCH ×3 (01:30→08:34)
[2020-12-03] MEDS: ESCITALOPRAM 10 MG TABLET PO SCH (09:31)
[2020-12-03] MEDS: DOCUSATE SODIUM 100 MG CAPSULE PO SCH (09:31)
[2020-12-03] MEDS: FUROSEMIDE 40 MG TABLET PO SCH (09:31)
[2020-12-03] MEDS: AMIODARONE 200 MG TABLET PO SCH (09:32)
[2020-12-03] MEDS: ASCORBIC ACID 500 MG TABLET PO SCH (09:32)
[2020-12-03] MEDS: FOLIC ACID 1 MG TABLET PO SCH (09:32)
[2020-12-03] MEDS: allopurinoL 100 MG TABLET PO SCH (09:32)
[2020-12-03] MEDS: CHLORHEXIDINE 0.12% ORAL RINSE 60 ML BOTTLE SWISH/SPIT SCH (09:32)
[2020-12-03] MEDS: COLCHICINE 0.6 MG CAPSULE PO SCH (09:32)
[2020-12-03] MEDS: CLOPIDOGREL 75 MG TABLET PO SCH (09:32)
[2020-12-03] MEDS: PANTOPRAZOLE 40 MG TABLET PO SCH (09:32)
[2020-12-03] MEDS: ASPIRIN EC 81 MG TABLET PO SCH (09:32)
[2020-12-03] MEDS: amLODIPine 10 MG TABLET PO SCH (09:32)
[2020-12-03] MEDS: FERROUS SULFATE 325 MG TABLET PO SCH (09:32)
[2020-12-03] MEDS: METOPROLOL TARTRATE 25 MG TABLET PO SCH (09:32)
[2020-12-03 10:14] VITALS: BP 120/88
[2020-12-03] MEDS: INSULIN REGULAR 100 UNIT/ML SUBCUT SCH (10:17)
== END 2020-12-03 11:54 | disposition home health service (06) | DRG 220 ==
LOC: N.TELES 09:48 → N.CVR 11-23 10:55 → N.TELES 11-24 16:00
PROC: CABGAVR (ICD-10-PCS; 2020-11-23 06:44)